=== PATIENT | male | born 1950 | race African-American/Black ===

== ENCOUNTER 2019-02-25 23:08 | Inpatient (IN) | payer MEDICARE, SELFPAY ==
[~2019-02-25] VITALS: Ht 170.2 cm; Wt 80.9 kg
[2019-02-25] MEDS ORDERED: SULFAMETH./TRIMETHOPRIM DS 800MG/160MG TABLET ONE (23:51)
[2019-02-25] MEDS ORDERED: CLINDAMYCIN PMX 900MG/50ML 50 ML ONE (23:51)
--- NOTE | 2019-02-25 23:59 | NUR ---
ABX INITIATED. NO BC PRIOR TO ADMIN PER ERP. WOUND CULTURE OBTAINED BY ERP PRIOR TO ABX
[2019-02-26] MEDS ORDERED: SULFAMETH./TRIMETHOPRIM DS 800MG/160MG TABLET PO ONE
[2019-02-26] MEDS ORDERED: SODIUM CHLORIDE FLUSH 10ML SYR IVF ONE
[2019-02-26] MEDS ORDERED: CLINDAMYCIN PMX 900MG/50ML 50 ML IVPB ONE
[2019-02-26 00:20] LABS: ALANINE AMINOTRANSFERASE 22 U/L (12-78); ALBUMIN 3.3 g/dL (3.4-5.0); ANION GAP 6 mmol/L (5-15); CALCIUM 9.3 mg/dL (8.5-10.1); CHLORIDE 105 mmol/L (98-107); CREATININE 1.02 mg/dL (0.7-1.3); MEAN CORPUSCULAR HEMOGLOBIN 22.9 pg (27.5-34.5); MEAN CORPUSCULAR HGB CONC 32.6 g/dL (33.2-36.2); MEAN CORPUSCULAR VOLUME 70.3 fL (81-97); MEAN PLATELET VOLUME 7.9 fL (7.4-10.4); PLATELET COUNT 407 x10^3/uL (130-400); RED BLOOD COUNT 4.81 x10^6/uL (4.38-5.82); RED CELL DISTRIBUTION WIDTH 19.9 % (9.4-14.8)
--- NOTE | 2019-02-26 00:20 | NUR ---
NO S/S OF ABX RXN NOTED. AWAITING ERP MD ANGUIANO.
[2019-02-26 00:23] LABS: ALKALINE PHOSPHATASE 82 U/L (45-117); BILIRUBIN,TOTAL 0.3 mg/dL (0.2-1.0); TOTAL PROTEIN 9.7 g/dL (6.4-8.2)
[2019-02-26 00:31] LABS: BASOPHILS # (AUTO) 0.01 x10^3/uL (0-0.1); BASOPHILS % (AUTO) 0 % (0-1); EOSINOPHILS # (AUTO) 0.11 x10^3/uL (0-0.4); EOSINOPHILS % (AUTO) 1 % (1-7); LYMPHOCYTES # (AUTO) 1.28 x10^3/uL (1-3.4); LYMPHOCYTES % (AUTO) 17 % (22-44); MD SCAN; MONOCYTES # (AUTO) 0.58 x10^3/uL (0.2-0.8); MONOCYTES % (AUTO) 8 % (2-9); NEUTROPHILS # (AUTO) 5.61 x10^3/uL (1.8-6.8); NEUTROPHILS % (AUTO) 74 % (42-75)
[2019-02-26] MEDS ORDERED: FOLI0.8T2 PO (01:08)
[2019-02-26] MEDS ORDERED: MELO15TA6 PO (01:08)
--- NOTE | 2019-02-26 01:09 | NUR ---
PT AGREES TO ADMIT. VS WNL. NO S/S OF ABX RXN NOTED. GRANDDAUGHTER AGREES TO COME INTERN PT'S VEHICLE.
--- NOTE | 2019-02-26 01:15 | NUR ---
REPORT TO NUHA CAMPBELL
--- NOTE | 2019-02-26 02:30 | NUR ---
PT RESTING QUIETLY WITH EYES CLOSED, NO DISTRESS NOTED, CALL LIGHT IN REACH
--- NOTE | 2019-02-26 02:48 | NUR ---
REPORT GIVEN TO NUHA BARRETT
[2019-02-26] MEDS ORDERED: ACETAMINOPHEN 325 MG TABLET PO PRN (04:00)
[2019-02-26] MEDS ORDERED: POLYETHYLENE GLYCOL 17 GM PACKET PO PRN (04:00)
[2019-02-26] MEDS ORDERED: ENALAPRILAT 1.25 MG/ML, 2ML IVPush PRN (04:00)
[2019-02-26] MEDS ORDERED: KETOROLAC 30 MG/1 ML IV PRN (04:00)
[2019-02-26] MEDS ORDERED: ONDANSETRON 2MG/ML, 2ML IVPush PRN (04:00)
[2019-02-26] MEDS ORDERED: morphine SULFATE 10 MG/ML, 1ML IVPush PRN (04:00)
[2019-02-26] MEDS: CLINDAMYCIN 300 MG CAPSULE PO SCH ×3 (05:41→17:28)
[2019-02-26 08:23] VITALS: BP 133/72
[2019-02-26] MEDS: SULFAMETH./TRIMETHOPRIM DS 800MG/160MG TABLET PO SCH ×2 (08:55→21:33)
[2019-02-26 14:24] VITALS: BP 126/63
[2019-02-26 19:16] VITALS: BP 114/48
[2019-02-27] MEDS: CLINDAMYCIN 300 MG CAPSULE PO SCH ×4 (00:19→18:10)
[2019-02-27 01:44] VITALS: BP 120/61
[2019-02-27 06:14] LABS: MEAN CORPUSCULAR HEMOGLOBIN 22.9 pg (27.5-34.5); MEAN CORPUSCULAR HGB CONC 32.7 g/dL (33.2-36.2); MEAN CORPUSCULAR VOLUME 70.1 fL (81-97); MEAN PLATELET VOLUME 7.8 fL (7.4-10.4); PLATELET COUNT 346 x10^3/uL (130-400); RED BLOOD COUNT 4.65 x10^6/uL (4.38-5.82); RED CELL DISTRIBUTION WIDTH 19.1 % (9.4-14.8)
[2019-02-27 06:27] LABS: MD YES
[2019-02-27 06:32] LABS: BASOS#(MANUAL) 0.06 x10^3/uL (0-0.1); BASOS% (MANUAL) 1 % (0-1); EOS#(MANUAL) 0.06 x10^3/uL (0.0-0.4); EOS% (MANUAL) 1 % (1-7); LYMPH#(MANUAL) 1.06 x10^3/uL (1-3.4); LYMPHS% (MANUAL) 18 % (22-44); MONOS% (MANUAL) 5 % (2-9); SEG#(MANUAL) 4.43 x10^3/uL (1.8-6.8); SEGS% (MANUAL) 75 % (42-75)
[2019-02-27 06:33] LABS: ANISOCYTOSIS 1+; MICROCYTOSIS 1+; OVALOCYTES 1+
[2019-02-27 06:34] LABS: TARGET CELLS 1+
[2019-02-27 06:36] LABS: <PLATELET ESTIMATE> ADEQUATE; <PLT MORPHOLOGY> NORMAL PLT MORPH; HYPOCHROMIA 1+
[2019-02-27 07:18] VITALS: BP 113/57
[2019-02-27] MEDS: SULFAMETH./TRIMETHOPRIM DS 800MG/160MG TABLET PO SCH ×2 (08:09→20:56)
[2019-02-27] MEDS: LACTOBACILLUS CHEW TABLET PO SCH ×3 (11:47→20:57)
[2019-02-27 12:36] LABS: HCT (SEDRATE) 33.7 % (39.2-51.8)
[2019-02-27 13:07] LABS: ALANINE AMINOTRANSFERASE 15 U/L (12-78); ALBUMIN 2.9 g/dL (3.4-5.0); ANION GAP 9 mmol/L (5-15); CHLORIDE 107 mmol/L (98-107); CREATININE 1.04 mg/dL (0.7-1.3); IRON LEVEL 29 mcg/dL (65-175)
[2019-02-27 13:20] LABS: % IRON SATURATION 10 % (20-55); ALKALINE PHOSPHATASE 76 U/L (45-117); BILIRUBIN,TOTAL 0.4 mg/dL (0.2-1.0); TOTAL IRON BINDING CAPACITY 280 mcg/dL (250-450); TRANSFERRIN 216 mg/dL (200-360)
[2019-02-27 13:24] VITALS: BP 118/66
[2019-02-27] MEDS ORDERED: BACITRACIN 50,000 UNIT ONE (14:35)
[2019-02-27] MEDS ORDERED: MIDAZOLAM 1 MG/ML, 2ML ONE (15:14)
[2019-02-27] MEDS ORDERED: FENTANYL PF 250 MCG/5ML ONE (15:15)
[2019-02-27] MEDS ORDERED: PROPOFOL 10 MG/ML, 20ML ONE (15:25)
[2019-02-27] MEDS ORDERED: PROMETHAZINE 25 MG/ML, 1ML IM PRN ×2 (15:30)
[2019-02-27] MEDS ORDERED: PROMETHAZINE 25 MG SUPP PR PRN (15:30)
[2019-02-27] MEDS ORDERED: MEPERIDINE/PF 25MG/0.5ML IVPush PRN (15:30)
[2019-02-27] MEDS ORDERED: PROMETHAZINE 25 MG/ML, 1ML IV PRN (15:30)
[2019-02-27] MEDS ORDERED: OXYcodone 5 MG/5 ML ORAL.SOL UDC PO PRN (15:30)
[2019-02-27] MEDS ORDERED: ONDANSETRON ODT 8 MG PO PRN (15:30)
[2019-02-27] MEDS ORDERED: ACETAMINOPHEN 325 MG TABLET PO PRN (15:30)
[2019-02-27] MEDS ORDERED: LABETALOL 5MG/ML, 20ML IV PRN (15:30)
[2019-02-27] MEDS ORDERED: PROMETHAZINE 12.5 MG SUPP PR PRN (15:30)
[2019-02-27] MEDS ORDERED: MORPHINE SULFATE 4 MG/ML, 1ML IVPush PRN (15:30)
[2019-02-27] MEDS ORDERED: hydrALAzine 20 MG/ML, 1ML IV PRN (15:30)
[2019-02-27] MEDS ORDERED: ONDANSETRON 2MG/ML, 2ML IV PRN (15:30)
[2019-02-27] MEDS ORDERED: FENTANYL PF 100 MCG/2ML ONE (16:24)
[2019-02-27] MEDS ORDERED: OXYcodone 5 MG/5 ML ORAL.SOL UDC ONE (16:24)
[2019-02-27] MEDS: FENTANYL PF 100 MCG/2ML IV PRN ×2 (16:27→16:34)
[2019-02-27] MEDS: HYDROmorphone 2 MG/ML, 1ML IVPush PRN ×2 (16:47→16:57)
[2019-02-27 17:26] VITALS: BP 165/77
[2019-02-27 19:44] VITALS: BP 153/68
[2019-02-27] MEDS: DIPHENHYDRAMINE 50 MG CAPSULE PO PRN (21:14)
[2019-02-28] MEDS: CLINDAMYCIN 300 MG CAPSULE PO SCH ×3 (00:07→12:57)
[2019-02-28 02:15] VITALS: BP 124/68
[2019-02-28 08:09] LABS: BASOPHILS # (AUTO) 0.01 x10^3/uL (0-0.1); BASOPHILS % (AUTO) 0 % (0-1); EOSINOPHILS # (AUTO) 0.11 x10^3/uL (0-0.4); EOSINOPHILS % (AUTO) 2 % (1-7); LYMPHOCYTES # (AUTO) 0.93 x10^3/uL (1-3.4); LYMPHOCYTES % (AUTO) 14 % (22-44); MD NO; MEAN CORPUSCULAR HGB CONC 32.9 g/dL (33.2-36.2); MEAN CORPUSCULAR VOLUME 69.9 fL (81-97); MEAN PLATELET VOLUME 7.6 fL (7.4-10.4); MONOCYTES # (AUTO) 0.52 x10^3/uL (0.2-0.8); MONOCYTES % (AUTO) 8 % (2-9); NEUTROPHILS # (AUTO) 5.08 x10^3/uL (1.8-6.8); NEUTROPHILS % (AUTO) 77 % (42-75); PLATELET COUNT 341 x10^3/uL (130-400); RED BLOOD COUNT 4.75 x10^6/uL (4.38-5.82); RED CELL DISTRIBUTION WIDTH 19.4 % (9.4-14.8)
[2019-02-28 08:16] LABS: ALBUMIN 2.9 g/dL (3.4-5.0); ANION GAP 8 mmol/L (5-15); CALCIUM 9.2 mg/dL (8.5-10.1); CHLORIDE 104 mmol/L (98-107); CREATININE 1.06 mg/dL (0.7-1.3)
[2019-02-28 09:26] VITALS: BP 127/67
[2019-02-28] MEDS: LACTOBACILLUS CHEW TABLET PO SCH ×3 (09:31→20:39)
[2019-02-28] MEDS: SULFAMETH./TRIMETHOPRIM DS 800MG/160MG TABLET PO SCH (09:32)
[2019-02-28] MEDS: FERROUS SULFATE 325 MG TABLET PO SCH ×2 (09:32→20:39)
[2019-02-28 14:45] VITALS: BP 143/64
[2019-02-28] MEDS: CLINDAMYCIN PMX 600MG/50ML 50 ML IV SCH ×2 (17:06→23:04)
[2019-02-28 19:27] VITALS: BP 124/66
[2019-02-28] MEDS: DIPHENHYDRAMINE 50 MG CAPSULE PO PRN (23:08)
[2019-03-01 02:31] VITALS: BP 121/67
[2019-03-01] MEDS: CLINDAMYCIN PMX 600MG/50ML 50 ML IV SCH (05:16)
[2019-03-01 05:32] LABS: MEAN CORPUSCULAR HEMOGLOBIN 23.1 pg (27.5-34.5); MEAN CORPUSCULAR VOLUME 69.9 fL (81-97); MEAN PLATELET VOLUME 7.7 fL (7.4-10.4); PLATELET COUNT 337 x10^3/uL (130-400); RED BLOOD COUNT 4.77 x10^6/uL (4.38-5.82); RED CELL DISTRIBUTION WIDTH 19.8 % (9.4-14.8)
[2019-03-01 05:40] LABS: ALBUMIN 2.9 g/dL (3.4-5.0); ANION GAP 7 mmol/L (5-15); CALCIUM 8.8 mg/dL (8.5-10.1); CHLORIDE 104 mmol/L (98-107)
[2019-03-01 05:44] LABS: ALANINE AMINOTRANSFERASE 17 U/L (12-78); ALKALINE PHOSPHATASE 71 U/L (45-117); BILIRUBIN,TOTAL 0.5 mg/dL (0.2-1.0); CREATININE 1.01 mg/dL (0.7-1.3); TOTAL PROTEIN 8.6 g/dL (6.4-8.2)
[2019-03-01 05:57] LABS: MD YES
[2019-03-01 05:59] LABS: <PLATELET ESTIMATE> ADEQUATE; <PLT MORPHOLOGY> NORMAL PLT MORPH; ANISOCYTOSIS 1+; EOS#(MANUAL) 0.28 x10^3/uL (0.0-0.4); EOS% (MANUAL) 5 % (1-7); LYMPH#(MANUAL) 1.21 x10^3/uL (1-3.4); LYMPHS% (MANUAL) 22 % (22-44); MICROCYTOSIS 1+; MONOS#(MANUAL) 0.44 x10^3/uL (0.3-2.7); MONOS% (MANUAL) 8 % (2-9); SEG#(MANUAL) 3.58 x10^3/uL (1.8-6.8); SEGS% (MANUAL) 65 % (42-75)
[2019-03-01] MEDS ORDERED: LEVOFLOXACIN/PMX 500MG/100ML 100 ML IV SCH (06:48)
[2019-03-01 07:29] VITALS: BP 126/70
[2019-03-01] MEDS: LACTOBACILLUS CHEW TABLET PO SCH ×3 (11:07→19:49)
[2019-03-01] MEDS: FERROUS SULFATE 325 MG TABLET PO SCH ×2 (11:07→19:49)
[2019-03-01] MEDS ORDERED: MIDAZOLAM 1 MG/ML, 5ML ONE (14:01)
[2019-03-01] MEDS ORDERED: FLUMAZENIL 0.1 MG/1 ML, 5ML ONE (14:01)
[2019-03-01] MEDS ORDERED: FENTANYL PF 100 MCG/2ML ONE (14:01)
[2019-03-01] MEDS ORDERED: NALOXONE 1 MG/ML, 2ML ONE (14:02)
[2019-03-01] MEDS ORDERED: GADOBUTROL 7.5 MMOL/7.5 ML PFS ONE (15:19)
[2019-03-01 15:54] VITALS: BP 136/80
[2019-03-01 20:11] VITALS: BP 118/68
[2019-03-02 01:58] VITALS: BP 129/73
[2019-03-02 04:35] LABS: BASOPHILS % (AUTO) 0 % (0-1); EOSINOPHILS # (AUTO) 0.18 x10^3/uL (0-0.4); EOSINOPHILS % (AUTO) 3 % (1-7); LYMPHOCYTES # (AUTO) 1.23 x10^3/uL (1-3.4); LYMPHOCYTES % (AUTO) 20 % (22-44); MD NO; MEAN CORPUSCULAR HEMOGLOBIN 22.7 pg (27.5-34.5); MEAN CORPUSCULAR HGB CONC 32.1 g/dL (33.2-36.2); MEAN CORPUSCULAR VOLUME 70.7 fL (81-97); MEAN PLATELET VOLUME 7.8 fL (7.4-10.4); MONOCYTES # (AUTO) 0.63 x10^3/uL (0.2-0.8); MONOCYTES % (AUTO) 11 % (2-9); NEUTROPHILS # (AUTO) 3.98 x10^3/uL (1.8-6.8); NEUTROPHILS % (AUTO) 66 % (42-75); PLATELET COUNT 346 x10^3/uL (130-400); RED BLOOD COUNT 5.04 x10^6/uL (4.38-5.82); RED CELL DISTRIBUTION WIDTH 19.8 % (9.4-14.8)
[2019-03-02 04:47] LABS: ALBUMIN 2.9 g/dL (3.4-5.0); ANION GAP 5 mmol/L (5-15); CALCIUM 9.1 mg/dL (8.5-10.1); CHLORIDE 106 mmol/L (98-107)
[2019-03-02 04:51] LABS: ALANINE AMINOTRANSFERASE 18 U/L (12-78); ALKALINE PHOSPHATASE 74 U/L (45-117); BILIRUBIN,TOTAL 0.6 mg/dL (0.2-1.0); CREATININE 0.91 mg/dL (0.7-1.3); TOTAL PROTEIN 8.9 g/dL (6.4-8.2)
[2019-03-02] MEDS ORDERED: LEVOFLOXACIN/PMX 750MG/150ML 150 ML IV SCH (07:30)
[2019-03-02 08:40] VITALS: BP 121/78
[2019-03-02] MEDS: LACTOBACILLUS CHEW TABLET PO SCH (09:20)
[2019-03-02] MEDS: FERROUS SULFATE 325 MG TABLET PO SCH (09:20)
[2019-03-02 12:28] VITALS: BP 115/72
== END 2019-03-02 14:34 | disposition left against medical advice (07) | DRG 513 ==
LOC: ED 23:59 → EDIP 02-26 02:37 → UNDOADMIN 02-26 02:37 → 3NE 02-26 03:47
PROVIDERS: ADMIT Family Medicine; ATTEND Family Medicine
PROC: 0KBD0ZZ Excision of Left Hand Muscle, Open Approach (ICD-10-PCS; 2019-02-27)
PROC: 0KBD0ZZ Excision of Left Hand Muscle, Open Approach (ICD-10-PCS; principal; 2019-02-27 14:30)
DX: M86.8X4 Other osteomyelitis, hand (principal); L03.114 Cellulitis of left upper limb; L02.512 Cutaneous abscess of left hand; M00.9 Pyogenic arthritis, unspecified; M65.842 Other synovitis and tenosynovitis, left hand; D50.9 Iron deficiency anemia, unspecified; M19.90 Unspecified osteoarthritis, unspecified site; F12.10 Cannabis abuse, uncomplicated; F17.210 Nicotine dependence, cigarettes, uncomplicated; W55.01XA Bitten by cat, initial encounter; Z88.0 Allergy status to penicillin; Z90.49 Acquired absence of other specified parts of digestive tract; Z82.49 Family history of ischemic heart disease and other diseases of the circulatory system
CPT/HCPCS: 36415; 80048; 80053; 82040; 82728; 83540; 83550; 84466; 85025; 85651; 86140; 87070; 87075; 87077; 87205; 93005; 96365; A9585; G0378; J1170; J1885; J1956; J2250; J2704; J3010; J2310

== ENCOUNTER 2019-03-02 22:44 | Inpatient (IN) | payer MEDICARE ==
[~2019-03-02] VITALS: Ht 167.6 cm; Wt 79.3 kg
[~2019-03-02 22:44] MED LIST: FOLI0.8T2 PO; MELO15TA6 PO
[2019-03-02] MEDS ORDERED: LEVOFLOXACIN/PMX 750MG/150ML 150 ML ONE (23:10)
[2019-03-02] MEDS ORDERED: LEVOFLOXACIN/PMX 750MG/150ML 150 ML IV ONE (23:30)
[2019-03-02] MEDS ORDERED: LEVOFLOXACIN/PMX 750MG/150ML 150 ML IV SCH (23:30)
[2019-03-02] MEDS ORDERED: POLYETHYLENE GLYCOL 17 GM PACKET PO PRN (23:30)
[2019-03-02] MEDS ORDERED: ACETAMINOPHEN 325 MG TABLET PO PRN (23:30)
[2019-03-02] MEDS ORDERED: hydrALAzine 20 MG/ML, 1ML IVPush PRN (23:30)
[2019-03-03 00:08] VITALS: BP 121/70
[2019-03-03] MEDS ORDERED: HEPARIN 5,000 UNITS/ML, 1ML ONE (00:35)
[2019-03-03] MEDS: HEPARIN 5,000 UNITS/ML, 1ML SQ SCH ×3 (01:03→17:14)
[2019-03-03 01:54] VITALS: BP 121/70
[2019-03-03 05:43] LABS: ALANINE AMINOTRANSFERASE 18 U/L (12-78); ALBUMIN 2.8 g/dL (3.4-5.0); ANION GAP 8 mmol/L (5-15); CHLORIDE 106 mmol/L (98-107); CREATININE 0.93 mg/dL (0.7-1.3)
[2019-03-03 05:45] LABS: ALKALINE PHOSPHATASE 68 U/L (45-117); BILIRUBIN,TOTAL 0.3 mg/dL (0.2-1.0); TOTAL PROTEIN 8.6 g/dL (6.4-8.2)
[2019-03-03 06:21] LABS: MD YES; MEAN CORPUSCULAR HGB CONC 32.8 g/dL (33.2-36.2); MEAN CORPUSCULAR VOLUME 70.3 fL (81-97); MEAN PLATELET VOLUME 7.4 fL (7.4-10.4); PLATELET COUNT 336 x10^3/uL (130-400); RED BLOOD COUNT 4.53 x10^6/uL (4.38-5.82)
[2019-03-03 06:24] LABS: EOS#(MANUAL) 0.25 x10^3/uL (0.0-0.4); EOS% (MANUAL) 4 % (1-7); LYMPH#(MANUAL) 1.64 x10^3/uL (1-3.4); LYMPHS% (MANUAL) 26 % (22-44); MONOS#(MANUAL) 0.57 x10^3/uL (0.3-2.7); MONOS% (MANUAL) 9 % (2-9); SEG#(MANUAL) 3.84 x10^3/uL (1.8-6.8); SEGS% (MANUAL) 61 % (42-75)
[2019-03-03 06:25] LABS: <PLATELET ESTIMATE> ADEQUATE; <PLT MORPHOLOGY> NORMAL PLT MORPH; ANISOCYTOSIS 1+; MICROCYTOSIS 1+
[2019-03-03 07:52] VITALS: BP 112/63
[2019-03-03] MEDS: FERROUS SULFATE 325 MG TABLET PO SCH ×3 (09:12→17:14)
[2019-03-03] MEDS: FOLIC ACID 1 MG TABLET PO SCH (09:12)
[2019-03-03] MEDS: MELOXICAM 15 MG TABLET PO SCH (09:12)
[2019-03-03 12:40] VITALS: BP 121/58
[2019-03-03] MEDS: CEFTRIAXONE PMX 2GM/50ML 50 ML IV SCH (13:14)
[2019-03-03 19:25] VITALS: BP 120/66
[2019-03-04] MEDS: HEPARIN 5,000 UNITS/ML, 1ML SQ SCH ×3 (00:48→17:06)
[2019-03-04 01:25] VITALS: BP 117/61
[2019-03-04 05:57] LABS: INTERNATIONAL NORMALIZED RATIO 1.14 (0.93-1.1); PROTHROMBIN TIME 11.9 Seconds (9.6-11.5)
[2019-03-04 06:00] LABS: ANION GAP 6 mmol/L (5-15); CHLORIDE 107 mmol/L (98-107); CREATININE 0.83 mg/dL (0.7-1.3)
[2019-03-04 06:02] LABS: MEAN CORPUSCULAR HGB CONC 32.6 g/dL (33.2-36.2); MEAN CORPUSCULAR VOLUME 70.6 fL (81-97); MEAN PLATELET VOLUME 7.7 fL (7.4-10.4); PLATELET COUNT 305 x10^3/uL (130-400); RED BLOOD COUNT 4.63 x10^6/uL (4.38-5.82)
[2019-03-04 06:30] LABS: MD YES
[2019-03-04 06:32] LABS: ANISOCYTOSIS 1+; EOS#(MANUAL) 0.25 x10^3/uL (0.0-0.4); EOS% (MANUAL) 6 % (1-7); LYMPH#(MANUAL) 1.76 x10^3/uL (1-3.4); LYMPHS% (MANUAL) 42 % (22-44); MICROCYTOSIS 1+; MONOS#(MANUAL) 0.34 x10^3/uL (0.3-2.7); MONOS% (MANUAL) 8 % (2-9); SEG#(MANUAL) 1.85 x10^3/uL (1.8-6.8); SEGS% (MANUAL) 44 % (42-75)
[2019-03-04 06:33] LABS: <PLATELET ESTIMATE> ADEQUATE; <PLT MORPHOLOGY> NORMAL PLT MORPH
[2019-03-04 07:50] VITALS: BP 123/63
[2019-03-04] MEDS: FERROUS SULFATE 325 MG TABLET PO SCH ×3 (08:00→17:06)
[2019-03-04] MEDS: FOLIC ACID 1 MG TABLET PO SCH (08:26)
[2019-03-04] MEDS: MELOXICAM 15 MG TABLET PO SCH (08:26)
[2019-03-04] MEDS ORDERED: BUPIVACAINE/PF 0.5% ONE (08:44)
[2019-03-04] MEDS ORDERED: FENTANYL PF 100 MCG/2ML ONE ×2 (08:52→10:09)
[2019-03-04] MEDS ORDERED: MIDAZOLAM 1 MG/ML, 2ML ONE (08:52)
[2019-03-04] MEDS ORDERED: PROPOFOL 10 MG/ML, 20ML ONE (09:09)
[2019-03-04] MEDS ORDERED: ONDANSETRON 2MG/ML, 2ML ONE (09:09)
[2019-03-04] MEDS ORDERED: CEFAZOLIN 1,000 MG ONE (09:09)
[2019-03-04] MEDS ORDERED: DEXAMETHASONE 4 MG/ML, 1ML ONE (09:09)
[2019-03-04] MEDS ORDERED: MEPERIDINE/PF 25MG/0.5ML IVPush PRN (09:30)
[2019-03-04] MEDS ORDERED: HALOPERIDOL 5 MG/ML IV PRN (09:30)
[2019-03-04] MEDS ORDERED: PROMETHAZINE 25 MG/ML, 1ML IV PRN (09:30)
[2019-03-04] MEDS ORDERED: hydrALAzine 20 MG/ML, 1ML IV PRN (09:30)
[2019-03-04] MEDS ORDERED: ALBUTEROL SULFATE 2.5 MG/3 ML NPPB PRN (09:30)
[2019-03-04] MEDS ORDERED: ACETAMINOPHEN 325 MG TABLET PO PRN (09:30)
[2019-03-04] MEDS ORDERED: ACETAMINOPHEN 650 MG/20.3 ML UDC ONE (10:09)
[2019-03-04] MEDS ORDERED: OXYcodone 5 MG/5 ML ORAL.SOL UDC ONE (10:09)
[2019-03-04] MEDS: OXYcodone 5 MG/5 ML ORAL.SOL UDC PO PRN ×2 (10:15→10:26)
[2019-03-04] MEDS: FENTANYL PF 100 MCG/2ML IV PRN ×2 (10:15→10:20)
[2019-03-04] MEDS ORDERED: HYDROmorphone 1 MG/ML, 1ML VIAL ONE (10:58)
[2019-03-04] MEDS: HYDROmorphone 2 MG/ML, 1ML IVPush PRN ×2 (11:00→11:05)
[2019-03-04] MEDS: CEFTRIAXONE PMX 2GM/50ML 50 ML IV SCH (12:51)
[2019-03-04 13:41] VITALS: BP 101/62
[2019-03-04 20:57] VITALS: BP 116/64
[2019-03-04] MEDS: OXYcodone IR 5MG TABLET PO PRN (23:43)
[2019-03-05] MEDS: OXYcodone IR 5MG TABLET PO PRN (00:26)
[2019-03-05 00:30] VITALS: BP 128/69
[2019-03-05] MEDS: HEPARIN 5,000 UNITS/ML, 1ML SQ SCH ×3 (01:27→16:25)
[2019-03-05 07:54] VITALS: BP 123/64
[2019-03-05] MEDS: FERROUS SULFATE 325 MG TABLET PO SCH ×3 (08:51→16:24)
[2019-03-05] MEDS: FOLIC ACID 1 MG TABLET PO SCH (08:52)
[2019-03-05] MEDS: MELOXICAM 15 MG TABLET PO SCH (08:53)
[2019-03-05] MEDS: metroNIDAZOLE 500 MG TABLET PO SCH ×3 (11:57→21:57)
[2019-03-05] MEDS: CEFTRIAXONE PMX 2GM/50ML 50 ML IV SCH (12:00)
[2019-03-05 14:31] VITALS: BP 129/66
[2019-03-05 20:20] VITALS: BP 133/61
[2019-03-05] MEDS: CEFUROXIME 1.5 GM in SODIUM CHLORIDE 0.9% 100 ML IV SCH (21:57)
[2019-03-06] MEDS: HEPARIN 5,000 UNITS/ML, 1ML SQ SCH ×3 (01:27→16:15)
[2019-03-06 01:53] VITALS: BP 131/69
[2019-03-06] MEDS: CEFUROXIME 1.5 GM in SODIUM CHLORIDE 0.9% 100 ML IV SCH (05:42)
[2019-03-06 07:45] VITALS: BP 149/72
[2019-03-06] MEDS: FERROUS SULFATE 325 MG TABLET PO SCH ×3 (08:24→16:15)
[2019-03-06] MEDS: MELOXICAM 15 MG TABLET PO SCH (08:24)
[2019-03-06] MEDS: FOLIC ACID 1 MG TABLET PO SCH (08:24)
[2019-03-06] MEDS: metroNIDAZOLE 500 MG TABLET PO SCH ×2 (08:24→16:15)
[2019-03-06] MEDS ORDERED: CEFTRIAXONE PMX 2GM/50ML 50 ML IV SCH (11:00)
[2019-03-06 13:47] VITALS: BP 125/63
[2019-03-06] MEDS ORDERED: CEFT2FRO2 IV (16:18)
[2019-03-06] MEDS ORDERED: FERR-51 PO (16:18)
[2019-03-06] MEDS ORDERED: METR500T PO (16:18)
== END 2019-03-06 17:22 | disposition home or self-care (01) | DRG 475 ==
LOC: ED 23:28 → EDIP 23:57 → 4EST 23:58 → 4NOR 03-03 14:46 → DCLOUNGE 03-06 17:05
PROVIDERS: ADMIT Family Medicine; ATTEND Family Medicine
PROC: 3E0T3BZ Introduction of Anesthetic Agent into Peripheral Nerves and Plexi, Percutaneous Approach (ICD-10-PCS; 2019-03-04)
PROC: 0X6 Anatomical Regions, Upper Extremities, Detachment (ICD-10-PCS; principal; 2019-03-04 09:00)
PROC: 02HV33Z Insertion of Infusion Device into Superior Vena Cava, Percutaneous Approach (ICD-10-PCS; 2019-03-05)
PROC: B5181ZA Fluoroscopy of Superior Vena Cava using Low Osmolar Contrast, Guidance (ICD-10-PCS; 2019-03-05)
PROC: B548ZZA Ultrasonography of Superior Vena Cava, Guidance (ICD-10-PCS; 2019-03-05)
DX: M86.142 Other acute osteomyelitis, left hand (principal); A28.0 Pasteurellosis; L03.114 Cellulitis of left upper limb; M00.9 Pyogenic arthritis, unspecified; L02.512 Cutaneous abscess of left hand; E44.0 Moderate protein-calorie malnutrition; Z88.0 Allergy status to penicillin; D50.9 Iron deficiency anemia, unspecified; D63.8 Anemia in other chronic diseases classified elsewhere; F12.90 Cannabis use, unspecified, uncomplicated; M65.9 Synovitis and tenosynovitis, unspecified; M77.9 Enthesopathy, unspecified; F17.200 Nicotine dependence, unspecified, uncomplicated; H54.7 Unspecified visual loss; Z83.3 Family history of diabetes mellitus; Z91.19 Patient's noncompliance with other medical treatment and regimen; Z82.49 Family history of ischemic heart disease and other diseases of the circulatory system
CPT/HCPCS: 36415; 36573; 80048; 80053; 85025; 85610; 87070; 87075; 87076; 87205; 96374; 99285; G0378; J0690; J0696; J0697; J1100; J1170; J1644; J1956; J2250; J2405; J2704; J3010; J3490; C1751

== ENCOUNTER 2019-12-31 14:19 | Emergency (ER) | payer MEDICARE ==
[~2019-12-31] VITALS: Ht 172.7 cm; Wt 79.0 kg
[~2019-12-31 14:19] MED LIST changes: +CEFT2FRO2 IV; +FERR-51 PO; +METR500T PO
[2019-12-31 14:27] VITALS: BP 126/84
--- NOTE | 2019-12-31 15:20 | NUR ---
PT ROOMED FROM [facility]. PT REQUIRING TWO PERSON TRANSFER ASSIST FROM OWN WHEELCHAIR TO [facility] D/T BILAT LE DECREASED ROM. PT HERE FOR R KNEE PAIN. DENIES NEW TRAUMA. PROVIDED HOSPITAL SOCKS.
[2019-12-31] MEDS ORDERED: HYDROcodone/APAP 5/325 TABLET PO STA (15:34)
[2019-12-31] MEDS ORDERED: HYDROcodone/APAP 5/325 TABLET ONE (15:51)
--- NOTE | 2019-12-31 16:27 | NUR ---
URBANO WRAP APPLIED BY TECH. TWO PERSON ASSIST TO OWN WHEELCHAIR. DC EDUCATION PROVIDED, PT DEMONSTRATES UNDERSTANDING. PT WHEELED TO DC WITH TECH. FAMILY TO TRANSPORT PT HOME
== END 2019-12-31 16:45 | disposition home or self-care (01) ==
LOC: ED 16:30
DX: S83.421A Sprain of lateral collateral ligament of right knee, initial encounter (principal); S83.411A Sprain of medial collateral ligament of right knee, initial encounter; M25.461 Effusion, right knee; F17.200 Nicotine dependence, unspecified, uncomplicated; X58.XXXA Exposure to other specified factors, initial encounter; Y93.89 Activity, other specified; Y92.89 Other specified places as the place of occurrence of the external cause; Y99.8 Other external cause status
CPT/HCPCS: 99283

== ENCOUNTER 2020-01-20 18:58 | Emergency (ER) | payer MEDICARE ==
[~2020-01-20] VITALS: Ht 172.7 cm; Wt 78.0 kg
[~2020-01-20 18:58] MED LIST changes: +ACET500T64 PO; +APIX5TAB PO; +ASPI81TA45 PO; +DAPT500V6 IV; +METO25TA35 PO; +SENN-193 PO
--- NOTE | 2020-01-20 21:45 | NUR ---
PT TO ROOM. PT HAS PICC IN [place]. HERE FOR IV ABX INFUSION. CRUMB IN ROOM FOR EVAL. PLAN ABX AND DC HOME. WILL RETURN TOMORROW FOR SAME.
[2020-01-20] MEDS ORDERED: DAPTOMYCIN IVPB ONE (22:00)
[2020-01-20] MEDS ORDERED: SODIUM CHLORIDE 0.9% IVPB ONE (22:00)
[2020-01-20 22:16] LABS: ANION GAP 6 mmol/L (5-15); CALCIUM 9.2 mg/dL (8.5-10.1); CHLORIDE 107 mmol/L (98-107); CREATININE 0.83 mg/dL (0.7-1.3)
[2020-01-20 22:22] LABS: BASOPHILS # (AUTO) 0.03 x10^3/uL (0-0.1); BASOPHILS % (AUTO) 0 % (0-1); EOSINOPHILS # (AUTO) 0.11 x10^3/uL (0-0.4); EOSINOPHILS % (AUTO) 1 % (1-7); LYMPHOCYTES # (AUTO) 1.18 x10^3/uL (1-3.4); LYMPHOCYTES % (AUTO) 12 % (22-44); MD NO; MEAN CORPUSCULAR HEMOGLOBIN 23.7 pg (27.5-34.5); MEAN CORPUSCULAR HGB CONC 32.3 g/dL (33.2-36.2); MEAN CORPUSCULAR VOLUME 73.2 fL (81-97); MEAN PLATELET VOLUME 6.9 fL (7.4-10.4); MONOCYTES # (AUTO) 0.64 x10^3/uL (0.2-0.8); MONOCYTES % (AUTO) 6 % (2-9); NEUTROPHILS # (AUTO) 8.19 x10^3/uL (1.8-6.8); NEUTROPHILS % (AUTO) 81 % (42-75); PLATELET COUNT 797 x10^3/uL (130-400); RED BLOOD COUNT 3.89 x10^6/uL (4.38-5.82); RED CELL DISTRIBUTION WIDTH 20.5 % (9.4-14.8)
--- NOTE | 2020-01-20 22:46 | NUR ---
ABX PER MAR. GIVEN URINAL.
--- NOTE | 2020-01-20 23:16 | NUR ---
PT HAD ARM BENT. ABX STILL INFUSING, REMINDED TO KEEP ARM STRAIGHT. UPDATED DAUGHTER JUNI. WILL LEGAL BILLING CLERK PT IN 30 MIN.
[2020-01-20 23:42] VITALS: BP 131/63
== END 2020-01-21 00:11 | disposition home or self-care (01) ==
LOC: ED 23:50
DX: M25.561 Pain in right knee (principal); M19.90 Unspecified osteoarthritis, unspecified site; Z90.89 Acquired absence of other organs; F17.200 Nicotine dependence, unspecified, uncomplicated
CPT/HCPCS: 36415; 80048; 85025; 96365; 99283; J0878

== ENCOUNTER 2020-01-21 17:34 | Emergency (ER) | payer MEDICARE ==
[~2020-01-21] VITALS: Ht 172.7 cm; Wt 80.0 kg
--- NOTE | 2020-01-21 18:52 | NUR ---
Iv abx requested from pharmacy (non-omnice med)
[2020-01-21] MEDS ORDERED: DAPTOMYCIN 600 MG in SODIUM CHLORIDE 0.9% 100 ML IV ONE (19:00)
--- NOTE | 2020-01-21 19:20 | NUR ---
PICC LINE DRESSING CHANGED INCLUDING STAT LOCK AND CAP IN STERILE FASHION THEN MEDICATED PER EMAR
[2020-01-21 19:29] VITALS: BP 138/53
== END 2020-01-21 20:14 | disposition home or self-care (01) ==
LOC: ED 18:34
DX: L03.115 Cellulitis of right lower limb (principal); L76.82 Other postprocedural complications of skin and subcutaneous tissue; M19.90 Unspecified osteoarthritis, unspecified site; Z90.89 Acquired absence of other organs
CPT/HCPCS: 96365; 99284; J0878; 99283

== ENCOUNTER → 2020-07-29 | Outpatient (CLI) | payer MEDICARE | END | disposition home or self-care (01) | LOC: CVU 13:53 | PROVIDERS: ATTEND Internal Medicine Cardiovascular Disease | DX: Z01.810 Encounter for preprocedural cardiovascular examination (principal); I51.7 Cardiomegaly; Z87.891 Personal history of nicotine dependence | CPT/HCPCS: 93306 ==

== ENCOUNTER 2020-10-09 08:34 | Outpatient (CLI) | payer MEDICARE ==
[2020-10-09] MEDS ORDERED: OMNIPAQUE 350 MG/ML, 100ML BOTTLE ONE (10:56)
== END 2020-10-09 23:59 | disposition home or self-care (01) ==
LOC: RAD 08:34
PROVIDERS: ATTEND Internal Medicine
DX: R91.1 Solitary pulmonary nodule (principal); I82.401 Acute embolism and thrombosis of unspecified deep veins of right lower extremity; I26.99 Other pulmonary embolism without acute cor pulmonale
CPT/HCPCS: 71275; 93971; Q9967